=== PATIENT | female | born 1945 | race Asian ===

== ENCOUNTER → 2018-07-22 | Outpatient (CLI) | payer OTHER ==
--- NOTE | 2018-07-22 12:46 | 2DMMODE ---
[facility] [address] [place] [address] 2 D/M-MODE ECHOCARDIOGRAM Name: ALBA REBOLLEDO Room #: [facility] Najma#: [id number] ������������� Admission: 07/22/18 ������������� Attend Phys: Charlene Andre Discharge: ��� ������������� ��� Date of : 49 Date of Service: 07/22/18 1245 �� Report #: [id number] �������� ��������������������������������������������[id number] THIS REPORT FOR: //name// APPROVED REPORT Study performed: 07/22/2018 10:35:38 EXAM: Comprehensive 2D, Doppler, and color-flow Echocardiogram Patient Location: Out-Patient Room #: Echo lab 2 Status: routine BSA: 1.43 HR: 68 bpm BP: 156/85 mmHg Rhythm: NSR Other Information Study Quality: Adequate Indications CAD 2D Dimensions IVSd: 11.21 (7-11mm) LVOT Diam: 19.27 (18-24mm) LVDd: 42.69 mm PWd: 11.08 (7-11mm) Ascending Ao: 25.62 (22-36mm) LVDs: 29.49 (25-40mm) Aortic Root: 27.35 mm IVC: 11.00 mm Aortic Valve AoV Peak Robert.: 1.31 m/s AO Peak Gr.: 6.91 mmHg LVOT Max P.80 mmHg LVOT Max V: 0.97 m/s LORNA Vmax: 2.16 cm2 Mitral Valve E/A Ratio: 1.0 MV Decel. Time: 206.54 ms MV E Max Robert.: 0.84 m/s MV A Robert.: 0.82 m/s MV PHT: 59.90 ms IVRT: 83.04 ms Pulmonary Valve PV Peak Robert.: 0.87 m/s PV Peak Gr.: 3.00 mmHg [facility] [address] [place] [address] 2 D/M-MODE [facility]OCARDIOGRAM [facility]#: [id number] ������������� Admission: 07/22/18 ������������� Attend Phys: Charlene Andre Discharge: ��� ������������� ��� Date of : 49 Date of Service: 07/22/18 1245 �� Report #: [id number] �������� ��������������������������������������������[id number] Pulmonary Vein P Vein S: 0.35 m/s P Vein A: 0.23 m/s P Vein D: 0.31 m/s P Vein A Dur.: 101.5 msec P Vein S/D Ratio: 1.13 Tricuspid Valve TR Peak Robert.: 2.34 m/s TR Peak Gr.: 21.93 mmHg PA Pressure: 27.00 mmHg Left Ventricle The left ventricle is normal size. There is normal LV segmental wall motion. There is normal left ventricular wall thickness. The left ventricular systolic function is normal. LVEF is 65-70%. Transmitral Doppler flow pattern suggests impaired LV relaxation. Right Ventricle The right ventricle is normal size. The right ventricular systolic function is normal. Atria The left atrium size is normal. The right atrium size is normal. Aortic Valve The aortic valve is normal in structure. No aortic regurgitation is present. There is no aortic valvular stenosis. Mitral Valve The mitral valve is normal in structure. Trace mitral regurgitation. No evidence of mitral valve stenosis. Tricuspid Valve The tricuspid valve is normal in structure. There is trace tricuspid regurgitation. Estimated PAP 27 mmHg. There is no pulmonary hypertension. Pulmonic Valve The pulmonary valve is normal in structure. Trace pulmonic regurgitation. Great Vessels The aortic root is normal in size. IVC is normal in size and collapses >50% with inspiration. [facility] [address] [place] [address] 2 D/M-MODE ECHOCARDIOGRAM Name: [facility] Room #: [facility].#: [id number] ������������� Admission: 07/22/18 ������������� Attend Phys: Charlene Andre Discharge: ��� ������������� ��� Date of : 49 Date of Service: 07/22/18 1245 �� Report #: [id number] �������� ��������������������������������������������[id number] Pericardium There is no pericardial effusion. <Conclusion> The left ventricle is normal size. There is normal left ventricular wall thickness. The left ventricular systolic function is normal. LVEF is 65-70%. Transmitral Doppler flow pattern suggests impaired LV relaxation. Trace mitral regurgitation. There is trace tricuspid regurgitation. Estimated PAP 27 mmHg. There is no pulmonary hypertension. IVC is normal in size and collapses >50% with inspiration. ��������������������������������������������� <ELECTRONICALLY SIGNED> ���������������������������������������� By: Rosendo Rivas MD, FACC ��������������������������������������������� 07/22/18 1245 1245 1245 Rosendo Rivas MD, FACC /INF
== END ==
LOC: NUC 07:51
DX: I25.10 Atherosclerotic heart disease of native coronary artery without angina pectoris (principal); R07.89 Other chest pain; R06.09 Other forms of dyspnea

== ENCOUNTER 2019-12-18 23:27 | Emergency (ER) | payer OTHER ==
[~2019-12-18] VITALS: Ht 157.5 cm; Wt 54.0 kg
[2019-12-18] MEDS ORDERED: CARTIA XT180 M1 PO (23:37)
[2019-12-19 00:20] LABS: HEMATOCRIT 42.1 % (37.0-47.0); HEMOGLOBIN 13.8 gm/dL (12.0-15.0); MCH 31.3 pg (26.0-34.0); MCHC 32.8 g/dL (28.0-37.0); MCV 95.3 fL (80.0-100.0); RBC 4.42 mil/uL (4.20-5.00); RDW 13.9 % (10.5-14.5); WBC 7.6 thou/uL (4.0-11.0)
[2019-12-19 00:25] LABS: ANION GAP 11 mmol/L (7-16); BUN 15 mg/dL (7-18); CALCIUM 9.4 mg/dL (8.5-10.1); CHLORIDE 107 mmol/L (98-107); CO2 25 mmol/L (21-32); CREATININE 0.7 mg/dL (0.6-1.0); GLUCOSE 123 mg/dL (74-106); SODIUM 143 mmol/L (136-145)
[2019-12-19 00:33] LABS: TROPONIN-I <0.06 ng/mL (<0.06)
[2019-12-19 02:51] VITALS: BP 163/62
--- NOTE | 2019-12-19 10:00 | EKG ---
[facility] [place] [address] ELECTROCARDIOGRAM REPORT Name: EDOUARD REBOLLEDO Room #: [facility]#: [id number] Admission: 12/18/19 Attend Phys: Discharge: 12/19/19 Date of : 49 Report #: [id number] THIS REPORT FOR: cc: Helen Monroe MD, Melanie MD Lundgren,Marck Mcclure MD 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 12/19/19 1000 D: 105 Marck Hensley MD, FACC /EPI
== END 2019-12-19 02:38 | disposition home or self-care (01) ==
LOC: ER 23:27
PROVIDERS: Emergency Medicine
DX: I10 Essential (primary) hypertension (principal); R55 Syncope and collapse; R50.9 Fever, unspecified; Z79.899 Other long term (current) drug therapy